=== PATIENT | male | born 1975 | race Caucasian/White ===

== ENCOUNTER → 2023-02-09 15:07 | Outpatient (CLI) | payer OTHER, SELFPAY ==
--- NOTE | ~2023-02-09 | CT_ITS ---
EXAMINATION: CT abdomen pelvis w con DATE: 02/09/2023 15:34 INDICATION: Abdominal pain. TECHNIQUE: Computed tomography (CT) of the abdomen and pelvis was performed with 100 mL Omnipaque 350 intravenous contrast. Automated exposure control and iterative reconstruction technique were employe d. The dose-length product was 1016.35 mGy-cm. COMPARISON: None. FINDINGS: The visualized portions of the lung bases demonstrate minimal atelectasis. No pleural effus ion. The heart size is normal. No pericardial effusion. There are cysts in the liver measuring up to 4 mm. There is a 6 mm hypodense mass in the spleen, likely benign. The gallbladder, pancreas, and adr enal glands are normal. There are cysts in the kidneys measuring up to 10 mm on the right. There are no dilated loops of bowel. The appendix is normal. There are no pathologically enlarged lymph nodes. There is no free intraperitoneal fluid. There is severe lower lumbar spondylosis. IMPRESSION: 1. No etiology for the patient's symptoms. Reviewed, dictated and finalized at location A.
== END ==
DX: R10.9 Unspecified abdominal pain (principal)
CPT/HCPCS: 74177; Q9967

== ENCOUNTER → 2023-04-14 12:12 | Outpatient (CLI) | payer OTHER, SELFPAY ==
--- NOTE | ~2023-04-14 | XR_ITS ---
XR lumbar spine min 4V DATE: 04/14/2023 13:09 INDICATION: Spondylosis TECHNIQUE: AP, lateral, coned lateral lumbosacral and bilateral oblique views COMPARISON: None FINDINGS: There is moderately severe degenerative disc disease at L5-S1. The lumbar interspaces other gonzalez are relatively well preserved. No spondylolysis or spondylolisthesis is detected. The lumbar pedicles are intact. The sacroiliac chris nts appear normal. IMPRESSION: Moderately severe degenerative disc disease at L5-S1 Reviewed, dictated and finalized at location A.
== END ==
DX: M43.06 Spondylolysis, lumbar region (principal)
CPT/HCPCS: 72110